=== PATIENT | male | born 1940 | race Two or more races ===

== ENCOUNTER 2020-11-29 14:11 | Emergency (ER) | payer MEDICARE, BC ==
[~2020-11-29] VITALS: Ht 172.7 cm; Wt 74.4 kg
[2020-11-29 15:20] LABS: BASOPHILS % (AUTO) 1 % (0-1); EOSINOPHILS % (AUTO) 3 % (1-7); LYMPHOCYTES % (AUTO) 16 % (22-44); MD NO; MEAN CORPUSCULAR HEMOGLOBIN 30.5 pg (27.5-34.5); MEAN CORPUSCULAR HGB CONC 33.6 g/dL (33.2-36.2); MEAN PLATELET VOLUME 10.7 fL (7.4-10.4); MONOCYTES % (AUTO) 9 % (2-9); NEUTROPHILS % (AUTO) 72 % (42-75); PLATELET COUNT 146 x10^3/uL (130-400); RED BLOOD COUNT 4.64 x10^6/uL (4.38-5.82); RED CELL DISTRIBUTION WIDTH 15.3 % (9.4-14.8)
[2020-11-29 15:25] LABS: ALBUMIN 3.5 g/dL (3.4-5.0); ANION GAP 6 mmol/L (5-15); CALCIUM 8.6 mg/dL (8.5-10.1); CHLORIDE 107 mmol/L (98-107)
[2020-11-29] MEDS ORDERED: LIDOCAINE 2%,20 ML JEL.PF.APP MM ONE ×2 (15:46→17:30)
--- NOTE | 2020-11-29 15:55 | NUR ---
PT BLADDER SCANNED AFTER PT USED URINAL. PVR IS 730ML.
[2020-11-29 16:49] VITALS: BP 135/86
[2020-11-29 16:59] LABS: MICROSCOPIC NOT IND
--- NOTE | 2020-11-29 17:51 | NUR ---
Patient given discharge instructions and they have confirmed that they understand the instructions. Patient ambulatory with steady gait.
== END 2020-11-29 17:56 | disposition home or self-care (01) ==
LOC: ED 17:30
DX: N40.1 Benign prostatic hyperplasia with lower urinary tract symptoms (principal); R33.9 Retention of urine, unspecified; E78.5 Hyperlipidemia, unspecified
CPT/HCPCS: 36415; 51702; 80048; 81003; 82040; 85025; 99284; C1726

== ENCOUNTER 2020-11-29 22:08 | Emergency (ER) | payer MEDICARE, BC ==
[~2020-11-29] VITALS: Ht 172.7 cm; Wt 71.8 kg
--- NOTE | 2020-11-29 22:46 | NUR ---
BLADDER SCANNED 204mL WITH CATHETER IN PLACE. [facility] PA NOTIFIED OF THIS. WILL ATTEMPT TO DEFLATE BALLOON STERILIZE TIP OF CATHETER AND INSERT PIERCE FURTHER AND REINFLATE BALLOON
[2020-11-29] MEDS ORDERED: LIDOCAINE 2%,20 ML JEL.PF.APP MM ONE ×2 (22:52→23:00)
--- NOTE | 2020-11-29 23:15 | NUR ---
PIERCE REMOVED. 5CC BALLOON DEFLATED. SCANT AMOUNT OF BLOOD FOLLOWED REMOVAL. PATIETN DENIED PAIN BUT STATES "THAT FEELS SO MUCH BETTER NOW THAT ITS OUT". KARLI ROWAN APPLIED IN URETHRA AND ORDERING PROPER SUPPLIES FOR INSERTION OF NEW PIERCE CALL LOVETT IN REACH AT BEDSIDE Addendum: 11/30/20 at 0010 by ADOUGHTY 180mL'S EMPTIED FROM PRIOR LEG BAG
--- NOTE | 2020-11-29 23:55 | NUR ---
NEW COUDE PIERCE PLACED 18FR. CHARO RN SECOND RN AT BEDSIDE. STERILITY MAINTAINED FOR ENTIRE PROCEDURE. PATIENT HAD SLIGHT DISCOMFORT DURING INSERTION BUT STATES "THIS ONE FEELS BETTER". 10CC BALLOON INFLATED AND CATHETER TUBING DRAINING URINE TO GRAVITY TO LEG BAG. NEW LEG BAG IN PLACE. 120mL'S FROM LEG BAG. WILL CONTINUE TO MONITOR NO BLEEDING FROM URETHRA
--- NOTE | 2020-11-30 00:14 | NUR ---
SCANT BLOOD FROM MEATUS. NO WOUNDS OR OPEN AREAS. I BELIEVE THIS IS COMING FROM TRAUMA/IRRITATION FROM HAVING 2 CATHETERS INSERTED WITHIN A TIGHT TIME FRAME TODAY. PATIENT STATES HE HAS NO PAIN AT THIS TIME.
--- NOTE | 2020-11-30 00:35 | NUR ---
DISCHARGE INSTRUCTIONS REVIEWED WITH PATIENT AND AT BEDSIDE. NO FURTHER QUESTIONS. NO IV PLACED DURING THIS ER VISIT. PIERCE CATHETER DRAINING INTO LEG BAG ON DEPARTURE. NO PAIN ON DEPARTURE. STEADY SLOW GAIT TO LOBBY. ALL PERSONAL BELONGINGS WITH PATIENT ON DISCHARGE.
[2020-11-30 00:36] VITALS: BP 138/69
== END 2020-11-30 00:39 | disposition home or self-care (01) ==
LOC: ED 11-30 00:31
DX: N40.0 Benign prostatic hyperplasia without lower urinary tract symptoms (principal); R33.9 Retention of urine, unspecified; T83.098A Other mechanical complication of other urinary catheter, initial encounter
CPT/HCPCS: 51702; 99284

== ENCOUNTER 2021-05-08 09:17 | Outpatient (CLI) | payer MEDICARE, BC ==
[2021-05-08] MEDS ORDERED: OMNIPAQUE 350 MG/ML, 100ML BOTTLE ONE (10:23)
== END 2021-05-08 23:59 | disposition home or self-care (01) ==
LOC: CFH 09:17
PROVIDERS: ATTEND Internal Medicine
DX: K40.20 Bilateral inguinal hernia, without obstruction or gangrene, not specified as recurrent (principal); K44.9 Diaphragmatic hernia without obstruction or gangrene; K57.30 Diverticulosis of large intestine without perforation or abscess without bleeding; N28.1 Cyst of kidney, acquired; K59.09 Other constipation; R10.32 Left lower quadrant pain; N28.82 Megaloureter; M51.36 Other intervertebral disc degeneration, lumbar region; I77.810 Thoracic aortic ectasia
CPT/HCPCS: 74177; Q9967